=== PATIENT | female | born 1955 | race Caucasian/White ===

== ENCOUNTER 2022-10-18 15:56 | Emergency (ER) | payer OTHER, BC ==
[2022-10-18 16:06] VITALS: RESP 18; BMI 19.7
[2022-10-18] MEDS ORDERED: METOPROLOL TARTRATE 5 MG/5 ML VIAL IVPUSH ONE (17:18)
[2022-10-18] MEDS ORDERED: METOPROLOL TARTRATE 50 MG TABLET (FP) PO ONE (17:22)
[2022-10-18] MEDS ORDERED: METOPROLOL TARTRATE 50 MG TABLET (FP) ONE (17:29)
[2022-10-18] MEDS ORDERED: METOPROLOL TARTRATE 5 MG/5 ML VIAL ONE (17:30)
[2022-10-18 18:30] LABS: BASO % 0.3 % (0-2.0); EOS % 0.3 % (0-4.5); HEMATOCRIT 40.8 % (32.4-45.2); HEMOGLOBIN 13.8 GM/dL (10.7-15.3); LYMPH % 23.3 % (8-40); MCH 31.8 pg (25.7-33.7); MCHC 33.8 g/dl (32.0-36.0); MEAN CELL VOLUME 94.1 fl (80-96); MEAN PLT VOLUME 9.9 fl (7.5-11.1); MONO % 9.2 % (3.8-10.2); NEUT % 66.9 % (42.8-82.8); PLATELET COUNT 230 10^3/uL (134-434); RBC 4.33 M/mm3 (3.60-5.2); RDW 12.9 % (11.6-15.6); WHITE BLOOD COUNT 3.6 K/mm3 (4.0-10.0)
[2022-10-18 18:48] LABS: ALBUMIN 3.9 g/dl (3.4-5.0); MAGNESIUM 2.1 mg/dL (1.8-2.4)
[2022-10-18 18:49] LABS: BLOOD UREA NITROGEN 17.4 mg/dL (7-18)
[2022-10-18 18:52] LABS: CREATININE 0.7 mg/dL (0.55-1.3)
[2022-10-18 18:53] LABS: BILIRUBIN,TOTAL 0.5 mg/dL (0.2-1); TOT PROT 7.2 g/dl (6.4-8.2)
[2022-10-18 21:13] VITALS: BP 141/88; PULSE 114; TEMP 98.1
== END 2022-10-18 21:57 | disposition left against medical advice (07) ==
LOC: JER 15:56
PROC: 3E033GC Introduction of Other Therapeutic Substance into Peripheral Vein, Percutaneous Approach (ICD-10-PCS; principal; 2022-10-18)
DX: I48.91 Unspecified atrial fibrillation (principal)
CPT/HCPCS: 36415; 71045-TC-FY; 80053; 83735; 84439; 84443; 84484; 85025; 93005; 93010; 99285-25